=== PATIENT | male | born 1980 | race Caucasian/White ===

== ENCOUNTER 2019-03-08 23:48 | Emergency (ER) | payer SELFPAY ==
[~2019-03-08] VITALS: Ht 180.3 cm; Wt 79.8 kg
[2019-03-09 00:04] VITALS: Ht 180.3 cm; Wt 79.8 kg
[2019-03-09 01:20] LABS: BASOPHIL % 0.8 % (0-2); PLATELET COUNT 294 x10^3mcL (130-400); RED CELL DISTRIBUTION WIDTH 13.1 % (11.5-14.5)
[2019-03-09 01:25] LABS: CALCIUM 9.1 mg/dL (8.5-10.1); CHLORIDE SERUM 103 mmol/L (98-107); CREATININE SERUM 1.1 mg/dL (0.7-1.3); GFR1 > 60 mL/min; GLUCOSE SERUM 112 mg/dL (74-106); POTASSIUM SERUM 3.6 mmol/L (3.5-5.1); SODIUM SERUM 142 mmol/L (136-145)
[2019-03-09 01:29] LABS: ALBUMIN 3.8 g/dL (3.4-5.0); ALKALINE PHOSPHATASE 103 U/L (46-116); ALT/SGPT 44 U/L (16-63); AST/SGOT 10 U/L (15-37); BILIRUBIN TOTAL 0.27 mg/dL (0.20-1.00); LIPASE 230 IU/L (73-393); TOTAL PROTEIN, SERUM 7.4 g/dL (6.4-8.2)
[2019-03-09 04:15] VITALS: BP 126/77
== END 2019-03-09 04:15 | disposition home or self-care (01) ==
LOC: ED 23:48
PROVIDERS: Emergency Medicine
DX: K29.70 Gastritis, unspecified, without bleeding (principal); Z90.89 Acquired absence of other organs
CPT/HCPCS: J2270; J2405; J7030; Q0092